=== PATIENT | male | born 1950 | race Caucasian/White ===

== ENCOUNTER → 2022-11-22 17:04 | Outpatient (CLI) | payer MEDICARE, SELFPAY ==
--- NOTE | 2022-11-22 17:08 | DI.US.S_ITS ---
PROCEDURE: US ABDOMEN LIMITED INDICATIONS: RIGHT GROIN MASS TECHNIQUE: Real-time scanning was performed of the abdominal and retroperitoneal organs, with image documentation. COMPARISON: None. FINDINGS: A hypoechoic hypervascular lesion is visualized at the right groin which measures 1.0 x 1.3 x 1.6 cm. This appears to originate from the dermal layer. This correlates as palpated. IMPRESSION: Hypoechoic mass which corresponds as palpated. Differential considerations include hemangioma, other vascular malformations, and neoplasm. Dermatology consultation recommended. Dictated by: Awa Coles M.D. on 11/23/2022 at 10:07 Approved by: Awa Coles M.D. on 11/23/2022 at 10:17
== END ==
PROVIDERS: Referring Provider Internal Medicine; Visit Provider Internal Medicine
DX: D49.2 Neoplasm of unspecified behavior of bone, soft tissue, and skin (principal)
CPT/HCPCS: 76705

== ENCOUNTER 2023-01-10 06:46 | Day surgery (SDC) | payer MEDICARE, SELFPAY ==
[2023-01-03 08:45] VITALS: BMI 27.8
--- NOTE | 2023-01-10 | PATH_ITS ---
[facility] Accession Number: [id number] No. of containers..01 Tissue . 01 Material submitted: . thigh - RIGHT THIGH MASS . 01 Diagnosis: Right Thigh, Excision: Pilomatricoma. MRV 01/12/2023 1243 Local . 01 Electronically signed: . Aranza Machado MD, Dermatopathologist NPI- [id number] . 01 Gross description: . Received in formalin and labeled right thigh mass, is a skin ellipse measuring 3.0 x 1.8 x 1.0 cm. It is inked, serially sectioned, with the ends submitted in cassette A1 and the remaining sections in cassettes A2-A5. ([id number]) /DENNIS 01/11/2023 0934 Local . 01 Pathologist provided ICD-10: D23.9 . 01 CPT . 950889 Specimen Comment: A courtesy copy of this report has been sent to [phone] Performed at: 01 [facility] [address] [place] [address], [place], [place] [id number] MD Agustin Harding MD Phone: [phone]
[2023-01-10 07:20] VITALS: BMI 27.8
[2023-01-10] MEDS: ACETAMINOPHEN 325 MG TABLET 975 MG PO (07:29)
[2023-01-10] MEDS: LACTATED RINGERS 1,000 ML 42 ML IV (07:31)
[2023-01-10 07:32] VITALS: BP 134/80; PULSE 74; RESP 16; TEMP 36.1; O2SAT 99
--- NOTE | 2023-01-10 07:40 | PM.PREOP ---
Pre-operative Note COVID-19 COVID-19 status: Not tested Interval Note History & Physical reviewed/Exam performed by Physician: Yes Changes to H&P: No ASA Class (for procedural sedation): II
--- NOTE | 2023-01-10 08:00 | SUR.OPER ---
Supine on padded OR bed, head on pillow, arms secured on padded arm boards at <90 degrees abduction, legs uncrossed, safety belt at thigh, tape over blanket over lower legs.
[2023-01-10] MEDS: BUPIVACAINE 0.25% (PF) VIAL 30 ML INJ (08:05)
[2023-01-10 08:16] VITALS: BP 98/67; PULSE 74; RESP 18; TEMP 36.7; O2SAT 95
[2023-01-10 08:21] VITALS: BP 114/64; PULSE 75; RESP 23; O2SAT 96
--- NOTE | 2023-01-10 08:22 | PM.OP.1 ---
Operative Date/Time/Diagnoses Date of procedure: 01/10/23 Time of procedure: 08:22 Pre-op diagnosis: Right thigh mass Post-op diagnosis: same Procedure & Clinicians Procedure: Excisional biopsy of right thigh mass Same procedure as scheduled: Yes Surgeon: Saúl Garrett Anesthesia Type: Sedation Operative Notes Procedure in detail: The patient was brought to the operating room and placed on the table in the supine position. Monitored anesthesia was induced. The right thigh was prepped and draped in the usual fashion and a time-out was performed. A 5 cm x 2 cm elliptical incision was created in the direction of the skin tension lines. The mass appeared to be originating from the dermis. The mass was completely excised along with some surrounding subcutaneous adipose tissue. A few bleeders were cauterized. Additional local was injected. The wound was closed with multiple interrupted 3-0 Vicryl dermal sutures followed by a running 4-0 Monocryl subcuticular closure. The wound was dressed with Steri-Strips and a Telfa with Tegaderm. EBL: 5 mL Specimen: Right thigh mass Post-operative Condition: stable Disposition: PACU
[2023-01-10 08:26] VITALS: BP 124/75; PULSE 71; RESP 22; TEMP 36.2; O2SAT 96
[2023-01-10 08:28] VITALS: BP 117/74; PULSE 68; RESP 21; O2SAT 96
== END 2023-01-10 08:45 | disposition home or self-care (01) ==
PROVIDERS: PCP Internal Medicine; Referring Provider Surgery; Visit Provider Surgery
PROC: (CPT 11402; principal; 2023-01-10 07:45)
DX: D23.71 Other benign neoplasm of skin of right lower limb, including hip (principal)
CPT/HCPCS: 11402; 12032; 82962; J2704